=== PATIENT | female | born 1980 | race Caucasian/White ===

== ENCOUNTER 2016-07-26 06:30 | Day surgery (SDC) | payer SELFPAY ==
[2016-07-17 16:40] VITALS: BMI 25.0
[2016-07-26] MEDS ORDERED: LIDOCAINE 1%-EPI 1:100,000 30 ML MDV IJ ONE (07:52)
[2016-07-26] MEDS ORDERED: METHYLENE BLUE 1% 10 MG/1 ML VIAL ONE (07:52)
[2016-07-26] MEDS ORDERED: BACITRACIN 30 GM TUBE TOPICAL OINTMENT ONE ×3 (07:52→15:28)
[2016-07-26] MEDS ORDERED: MIDAZOLAM HCL 2 MG/2 ML SINGLE DOSE VIAL ONE (08:14)
[2016-07-26] MEDS ORDERED: EPINEPHrine/PF 1 MG/1 ML (1:1,000) AMPULE ONE ×2 (08:19→14:15)
[2016-07-26] MEDS ORDERED: LIDOCAINE HCL 1%, 10 MG/ML (20ML VIAL) ONE ×2 (08:19→14:15)
[2016-07-26] MEDS ORDERED: PROPOFOL 20 ML ONE ×2 (08:50)
[2016-07-26] MEDS ORDERED: ROCURONIUM BROMIDE 50 MG/5 ML VIAL ONE ×2 (08:50→09:38)
[2016-07-26] MEDS ORDERED: SUCCINYLCHOLINE CHLORIDE 200 MG/10 ML VIAL ONE (08:50)
[2016-07-26] MEDS ORDERED: GENTAMICIN SO4 80 MG/2 ML VIAL ONE (09:00)
[2016-07-26] MEDS ORDERED: LIDOCAINE HCL 2% 100 MG/5 ML DISP.SYRIN ONE (09:01)
[2016-07-26] MEDS ORDERED: ceFAZolin SODIUM 1 GM VIAL ONE ×2 (09:06→12:58)
[2016-07-26] MEDS ORDERED: HYDROmorphone HCL/PF 1 MG/ML VIAL (FOR PYXIS CHARGING ONLY) ONE ×2 (09:18→12:41)
[2016-07-26] MEDS ORDERED: DEXAMETHASONE SOD PHOSPHATE 4 MG/1 ML VIAL ONE ×2 (09:20→14:12)
[2016-07-26] MEDS ORDERED: ONDANSETRON 4 MG/2 ML VIAL ONE ×2 (09:20→14:12)
[2016-07-26] MEDS ORDERED: ePHEDrine SULFATE 50 MG/1 ML AMPULE ONE (09:53)
[2016-07-26] MEDS ORDERED: PHENYLEPHRINE HCL 10 MG/1 ML SINGLE DOSE VIAL ONE (09:53)
[2016-07-26] MEDS ORDERED: FAMOTIDINE 20 MG/50 ML IVPB 50 ML IVPB ONE ×2 (15:58→16:05)
[2016-07-26] MEDS ORDERED: FAMOTIDINE 20 MG PREMIXED IVPB IVPB ONE (16:00)
[2016-07-26] MEDS ORDERED: oxyCODONE HCL 5 MG TABLET PO PRN (16:04)
[2016-07-26] MEDS ORDERED: PROMETHAZINE HCL 25 MG/1 ML VIAL IVPUSH PRN (16:04)
[2016-07-26] MEDS ORDERED: ONDANSETRON 4 MG/2 ML VIAL IVPUSH PRN (16:04)
[2016-07-26] MEDS ORDERED: LACTATED RINGERS SOLUTION 1,000 ML IV SCH (16:15)
[2016-07-26] MEDS ORDERED: oxyCODONE HCL 5 MG TABLET ONE ×2 (18:37→20:19)
[2016-07-26 19:48] VITALS: BP 104/54; PULSE 54; TEMP 99.2
[2016-07-27 09:24] LABS: HIV 1 & 2 AB NEGATIVE; HIV 1 AGp24 NEGATIVE
--- NOTE | 2016-07-31 13:15 | PATH ---
Surgical Pathology Report Patient Name: PUMA VILLAFUERTE [facility]. Rec. #: [id number] /Age/Gender: 1980 (Age: 36) / F Account: [id number] Location: [facility] AMBULATORY Taken: 07/29/2016 Received: 07/29/2016 Reported: 07/31/2016 Physicians: Shivani Alcantar M.D. Specimen(s) Received A: BILATERAL VAGINAL MUCOSA B: BILATERAL LABIA MINORA SKIN C: RIGHT AND LEFT LABIA MAJORA SKIN D: SKIN TAGS Clinical History Cosmetic Final Diagnosis A. BILATERAL VAGINAL MUCOSA, EXCISION: PORTIONS OF MUCOSAL TISSUE, DESCRIBED (GROSS EXAMINATION ONLY). B. BILATERAL LABIA MINORA SKIN, LABIAPLASTY: PORTIONS OF SKIN, DESCRIBED (GROSS EXAMINATION ONLY). C. RIGHT AND LEFT LABIA MAJORA SKIN, LABIAPLASTY: PORTIONS OF SKIN, DESCRIBED (GROSS EXAMINATION ONLY). D. SKIN TAGS, EXCISION: PORTIONS OF SKIN, DESCRIBED (GROSS EXAMINATION ONLY). Electronically Signed Zenaida Shea M.D. Gross Description A. Received in formalin, labeled "bilateral vaginal mucosa," is a 4.3 x 3.0 x 0.2 cm aggregate of multiple arriola, irregular, unremarkable portions of mucosal tissue. No discrete lesions are identified. No sections are submitted, gross only. B. Received in formalin, labeled "bilateral labia minora," are 2 arriola, irregular, unremarkable skin shaves measuring 6.3 x 1.2 cm and is 9.0 x 1.5 cm. No discreet lesions are identified. No sections are submitted, gross only. C. Received in formalin, labeled "right and left labia majora skin," are 4 arriola, irregular, unremarkable portions of skin ranging from 0.8 x 0.4 cm to 5.0 x 1.4 cm. No discrete lesions are identified. No sections are submitted, gross only. D. Received in formalin, labeled "skin tags," are 2 arriola skin fragments averaging 0.2 cm in greatest dimension. No sections are submitted, gross only. 07/29/2016 saudi07/29/2016
== END 2016-07-26 20:41 | disposition home or self-care (01) ==
LOC: FASU 06:30
PROVIDERS: ATTEND Surgery
PROC: 0HBAXZZ Excision of Inguinal Skin, External Approach (ICD-10-PCS; 2016-07-26)
PROC: 0UBM0ZZ Excision of Vulva, Open Approach (ICD-10-PCS; principal; 2016-07-26 09:41)
DX: Z41.1 Encounter for cosmetic surgery (principal)
CPT/HCPCS: 36415; 80074; 84460; 84703; 87340; 87389; 88300-TC; 94760